=== PATIENT | male | born 1980 | race African-American/Black ===

== ENCOUNTER 2017-06-15 13:13 | Observation (INO) | payer OTHER ==
[~2017-06-15] VITALS: Ht 190.5 cm; Wt 68.2 kg
[2017-06-15 13:33] VITALS: BP 128/77; TEMP 98.4
[2017-06-15 14:55] LABS: PLATELET COUNT 265 K/uL (142-355)
[2017-06-15 15:05] LABS: POTASSIUM 3.7 mmol/L (3.6-5.2); SODIUM 140 mmol/L (136-145)
--- NOTE | 2017-06-15 17:25 | NUR ---
PATIENT BROUGHT TO ROOM 1109 FROM ER. PATIENT ALERT AND ORIENTED ON ARRIVAL, DENIES PAIN AT THIS TIME. USING AN CONSULTING TECHNICAL DIRECTOR PATIENT'S HISTORY WAS OBTAINED AND HE WAS ORIENTED TO THE ROOM AND CALL SYSTEM. ALSO EXPLAINEDD WITH CONSULTING TECHNICAL DIRECTOR THE PLAN OF CARE. PATIENT VERBALIZES UNDERSTANDING OF ALL INFORMATION.
[2017-06-15 18:16] VITALS: BP 150/82; TEMP 98.4; Ht 190.5 cm; Wt 68.2 kg
[2017-06-15 20:00] VITALS: BP 134/72; TEMP 98.9
[2017-06-16] VITALS: BP 140/76; TEMP 98.4
[2017-06-16 04:00] VITALS: BP 129/75; TEMP 98.9
[2017-06-16 04:40] LABS: PLATELET COUNT 245 K/uL (142-355)
[2017-06-16 05:00] LABS: POTASSIUM 3.8 mmol/L (3.6-5.2); SODIUM 139 mmol/L (136-145)
[2017-06-16 08:00] VITALS: BP 120/73; TEMP 98.7
[2017-06-16 12:00] VITALS: BP 121/81; TEMP 98.5
[2017-06-16 16:00] VITALS: BP 130/61; TEMP 98.3
[2017-06-16 20:00] VITALS: BP 129/85; TEMP 99.2
[2017-06-17] VITALS: BP 117/71; TEMP 98.4
[2017-06-17 04:00] VITALS: BP 126/70; TEMP 97.7
[2017-06-17 07:04] LABS: PLATELET COUNT 238 K/uL (142-355)
[2017-06-17 07:15] LABS: POTASSIUM 3.6 mmol/L (3.6-5.2); SODIUM 138 mmol/L (136-145)
[2017-06-17 08:00] VITALS: BP 124/80; TEMP 98
[2017-06-17 12:00] VITALS: BP 125/76; TEMP 98
--- NOTE | 2017-06-17 12:00 | NUR ---
IV D/C'd. NO REDNESS OR EDEMA OBSERVED. DISCHARGE INSTRUCTIONS SIGNED AND GIVEN. Pt. EXIT OUT OF FRONT ENTRANCE AMBULATING.
--- NOTE | 2017-06-17 17:09 | NUR ---
DRESSING APPLIED TO LEFT ARM. CLEANSED WITH NS. TELFA APPLIED TO L ARM. WRAPPED WITH GUAZE.
== END 2017-06-17 17:01 | disposition home or self-care (01) ==
LOC: ED 13:13 → MED/SURG 15:38
PROVIDERS: Emergency Medicine; ADMIT Emergency Medicine
DX: L03.114 Cellulitis of left upper limb (principal)
CPT/HCPCS: 36415; 80053; 80202; 85027; 85651; 87040; 87070; 87077; 87185; 87186; 87205; 90471; 90715; 96367; 96368; 96372; 96375; 99220; 99284; G0378; J1650; J1885; J2270; J3370